=== PATIENT | female | born 1985 | race Caucasian/White ===

== ENCOUNTER 2019-11-27 09:16 | Emergency (ER) | payer OTHER ==
[~2019-11-27] VITALS: Ht 160 cm; Wt 77.7 kg
--- NOTE | 2019-11-27 09:20 | NUR ---
Patient ambulated to bed 2. RN evaluating patient at bedside.
[2019-11-27 09:29] VITALS: BP 154/108
--- NOTE | 2019-11-27 09:36 | NUR ---
34/f bib self C/O LEFT LABIA PAIN & SWEELING , denies vaginal discharge X 1 WEEKS. PATIENT STATES PAIN OF 10/10 AT THIS TIME.PATIENT POSITIONED FOR COMFORT; HOB ELEVATED; BEDRAILS UP X1; BED DOWN. ER MD MADE AWARE OF PT STATUS.
--- NOTE | 2019-11-27 09:36 | NUR ---
Note undone in EDM - 11/27/19 at 0939 by [facility] 34/f bib self C/O R LABIA PAIN & SWEELING , denies vaginal discharge X 1 WEEKS. PATIENT STATES PAIN OF 10/10 AT THIS TIME.PATIENT POSITIONED FOR COMFORT; HOB ELEVATED; BEDRAILS UP X1; BED DOWN. ER MADE AWARE OF PT STATUS.
[2019-11-27] MEDS ORDERED: CEPHALEXIN 500 MG CAP PO ONE (10:15)
[2019-11-27] MEDS ORDERED: LIDOCAINE 2% 1000 MG/50 ML VIAL INJ ONE (10:15)
--- NOTE | 2019-11-27 10:20 | NUR ---
Dr. Mauro is evaluating the patient at bedside.
--- NOTE | 2019-11-27 11:33 | NUR ---
I&D DONE BY DR BLANK. PT TOLERATED PROCEDURE WELL. VAGINAL SPECIMEN SENT TO LAB.
[2019-11-27] MEDS ORDERED: KETOROLAC 30 MG/ML VIAL IM ONE (12:20)
[2019-11-27 12:30] VITALS: BP 121/69
--- NOTE | 2019-11-27 12:30 | NUR ---
Patient discharged with v/s stable. Written and verbal after care instructions given and explained. Patient alert, oriented and verbalized understanding of instructions. Ambulatory with steady gait. All questions addressed prior to discharge. ID band removed. Patient advised to follow up with PMD. Rx of KEFLEX, NORCO & MOTRIN given. Patient educated on indication of medication including possible reaction and side effects. Opportunity to ask questions provided and answered.
== END 2019-11-27 12:30 | disposition home or self-care (01) ==
LOC: MED 09:16
DX: N75.0 Cyst of Bartholin's gland (principal)
CPT/HCPCS: 56405; 81002; 87070; 87075; 87186; 87205; 96372; 99284; J1885; J2001